=== PATIENT | male | born 1960 ===

== ENCOUNTER 2017-01-04 17:26 | Emergency (ER) | payer MEDICAID ==
[2017-01-04 17:26] VITALS: BMI 22.1
[2017-01-04 17:45] VITALS: RESP 18
--- NOTE | 2017-01-04 18:39 | C.PDOC ---
History Of Present Illness Maged Grace is a 56 year old male, with a past medical history of diabetes, who presents to the emergency department complaining of diabetic wound to the right foot fifth toe onset for 1 week. Patient denies any fever, chills, nausea , vomit, abdominal pain, and trauma. Pt did not take insulin injection today, sometimes treats himself every other day and not daily. PMD: None provided. Time Seen by Provider: 01/04/17 17:58 Chief Complaint (Nursing): Lower Extremity Problem/Injury History Per: Patient History/Exam Limitations: no limitations Onset/Duration Of Symptoms: Days (7) Current Symptoms Are (Timing): Still Present Severity: Mild Past Medical History Reviewed: Historical Data, Nursing Documentation, Vital Signs Vital Signs: Last Vital Signs Temp 98.2 F 01/04/17 20:27 Pulse 67 01/04/17 20:27 Resp 18 01/04/17 20:27 BP 155/90 H 01/04/17 20:27 Pulse Ox 100 01/04/17 21:04 - Medical History PMH: Diabetes (NIDDM), HTN, Hypercholesterolemia Denies: HIV, Chronic Kidney Disease - [facility] INTRODUCTION OF SERUM/TOX/VACCINE INTO MUSCLE, PERC APPROACH (07/24/16) Family History: States: Unknown Family Hx - Social History Hx Tobacco Use: No (former smoker) Hx Alcohol Use: No (drinks occ) Hx Substance Use: Yes - Immunization History Hx Tetanus Toxoid Vaccination: No Hx Influenza Vaccination: No Hx Pneumococcal Vaccination: No Review Of Systems Except As Marked, All Systems Reviewed And Found Negative. Constitutional: Negative for: Fever, Chills Gastrointestinal: Negative for: Nausea, Vomiting, Abdominal Pain Musculoskeletal: Positive for: Foot Pain (right toe 5th digit diabetic wound) Physical Exam - Physical Exam Appears: Well, Non-toxic, No Acute Distress Skin: Normal Color, Warm, Dry Head: Atraumatic, Normacephalic Eye(s): bilateral: Normal Inspection, PERRL, EOMI Ear(s): Bilateral: Normal Nose: Normal Throat: Normal Neck: Normal, Normal ROM Respiratory: Normal Breath Sounds Extremity: Normal ROM, Other (diabetic ulcer on 5th digit right foot) Neurological/Psych: Oriented x3, Normal Speech, Normal Cognition, Normal Motor, Normal Sensation ED Course And Treatment - Laboratory Results Result Diagrams: 01/04/17 19:28 01/04/17 19:28 O2 Sat by Pulse Oximetry: 100 (RA) Pulse Ox Interpretation: Normal Medical Decision Making Medical Decision Making: Pt has elevated Glucose, BUN/Cr elevated, discussed abnormal findings with pt. Advised to f/u with our clinic and provided [facility] certified concierge number. Pt denies nausea, vomiting, abdominal pain, no sx of DKA. Pt skipped insulin today, last dose yesterday, states has insulin at home. Scribe Attestation The documentation for this encounter was entered by Swapnil German acting as a scribe for Stephanie NIELSON All medical record entries made by the Scribe were at my direction and personally dictated by me. I have reviewed the chart and agree that the record accurately reflects my personal performance of the history, physical exam, medical decision making, and the department course for this patient. I have also personally directed, reviewed, and agree with the discharge instructions and disposition. Disposition Counseled Patient/Family Regarding: Diagnosis, Need For Followup, Rx Given - Disposition Referrals: [facility] [Outside] [facility] [Outside] Chaim Mercado DPM [Staff Provider] - Disposition: HOME/ ROUTINE Disposition Time: 18:37 Condition: STABLE Additional Instructions: FOLLOW UP WITH PMD/CLINIC FOR ELEVATED HIGH BLOOD GLUCOSE (SUGAR) AND FOR [employer] [employer] ADVISOR REFERRAL. MONITOR YOUR SUGAR DAILY AND DON'T SKIP INSULIN INJECTIONS. NO INSULIN INJECTIONS TODAY, START TOMORROW. IF SYMPTOMS GET WORSE OR ANY NEW CONCERNING SYMPTOMS DEVELOP RETURN TO ED. Prescriptions: Mupirocin 2% Ointment [Bactroban Ointment] 1 appl TP BID #1 tube Instructions: Diabetic Foot Ulcers (ED), Diabetic Hyperglycemia (ED) Forms: [facility] (Lebanese), Gen Discharge Inst Singaporean Print Language: TELUGU - Clinical Impression Clinical Impression: Diabetic ulcer of toe, Hyperglycemia
[2017-01-04] MEDS ORDERED: (Novolin R) Insulin Human Regular 100 units/ml vial SC STA (19:14)
[2017-01-04 19:31] LABS: BASO # 0.1 K/uL (0.0-0.2); BASO % 0.6 % (0.0-2.0); EOS # 0.1 K/uL (0.0-0.7); EOS % 1.5 % (0.0-4.0); HEMATOCRIT 39.3 % (35.0-51.0); LYMPH # 2.2 K/uL (1.0-4.3); LYMPH % 26.6 % (20.0-40.0); MEAN CELL VOLUME 89.3 fL (80.0-94.0); MEAN CORPUSCULAR HEMOGLOBIN 30.6 pg (27.0-31.0); MEAN CORPUSCULAR HGB CONC 34.2 g/dL (33.0-37.0); MEAN PLATELET VOLUME 7.8 fL (7.2-11.7); MONO # 0.6 K/uL (0.0-0.8); MONO % 6.7 % (0.0-10.0); RED CELL DISTRIBUTION WIDTH 12.5 % (11.5-14.5); WHITE BLOOD COUNT 8.3 K/uL (4.8-10.8)
[2017-01-04] MEDS ORDERED: Sodium Chloride 0.9% 1,000 ML IV ONE (19:38)
[2017-01-04] MEDS ORDERED: (Novolin R) Insulin Human Regular 100 units/ml vial IV ONE (19:40)
[2017-01-04 19:42] LABS: ALB/GLOB RATIO 1.1 (1.0-2.1); BILIRUBIN,TOTAL 0.6 mg/dL (0.2-1.3); CALCIUM 8.6 mg/dl (8.6-10.4); POTASSIUM 4.3 mmol/L (3.6-5.2); TOTAL PROTEIN 6.5 g/dL (6.3-8.3)
[2017-01-04 20:28] VITALS: BP 155/90; PULSE 67; TEMP 98.2; O2SAT 100
== END 2017-01-04 21:15 | disposition home or self-care (01) ==
LOC: C.ER 17:26
DX: E11.621 Type 2 diabetes mellitus with foot ulcer (principal); L97.519 Non-pressure chronic ulcer of other part of right foot with unspecified severity
CPT/HCPCS: 80053; 82948; 85025; 96360; 99285; J7040